=== PATIENT | female | born 1970 | race African-American/Black ===

== ENCOUNTER 2016-08-08 10:46 | Emergency (ER) | payer OTHER ==
--- NOTE | 2016-08-08 11:18 | ER Document Report ---
ED Medical Screen (RME) - General Chief Complaint: Back Pain Stated Complaint: BACK PAIN Mode of Arrival: Ambulatory Information source: Patient Notes: Patient presents to the emergency department for complaints of right hand pain and swelling. Patient reports history of chronic back pain felt sharp pain last night fell and landed on her hand. She is here for her hand pain. Good cap refill, +ttp dorsally, swelling TRAVEL OUTSIDE OF THE [place] IN LAST 30 DAYS: No - Related Data Allergies/Adverse Reactions: No Known Allergies Allergy (Unverified 08/08/16 11:15) Past Medical History Past Surgical History: Reports: Hx Gynecologic Surgery - D&C - Immunizations Hx Diphtheria, Pertussis, Tetanus Vaccination: Yes - 2009 Physical Exam - Vital signs Vitals: Temp Pulse Resp BP Pulse Ox 98.1 F 79 14 135/91 H 98 08/08/16 10:51 08/08/16 10:51 08/08/16 10:51 08/08/16 10:51 08/08/16 10:51 Course - Vital Signs Vital signs: Temp Pulse Resp BP Pulse Ox 98.1 F 79 14 135/91 H 98 08/08/16 10:51 08/08/16 10:51 08/08/16 10:51 08/08/16 10:51 08/08/16 10:51
--- NOTE | 2016-08-08 12:12 | ER Document Report ---
HPI - HPI Patient complains to provider of: hyperflexed right hand Onset: Yesterday - fall Onset/Duration: Sudden Quality of pain: Throbbing Pain Level: 4 Context: 45-year-old female stumbled and fell using her right outstretched hand was caused hyperflexion. There is swelling to the hyperthenar aspect with 2 superficial flaps and swelling and tenderness to the second proximal metacarpal. Associated Symptoms: None Exacerbated by: Movement Relieved by: Denies Similar symptoms previously: No Recently seen / treated by doctor: No - ROS ROS below otherwise negative: Yes Systems Reviewed and Negative: Yes All other systems reviewed and negative - DERM Skin Color: Normal Past Medical History - General Information source: Patient - Social History Smoking Status: Never Smoker Chew tobacco use (# tins/day): No Frequency of alcohol use: None Drug Abuse: None Family History: Reviewed & Not Pertinent Patient has suicidal ideation: No Patient has homicidal ideation: No - Medical History Medical History: Negative Renal/ Medical History: Denies: Hx Peritoneal Dialysis Past Surgical History: Reports: Hx Gynecologic Surgery - D&C, Hx Hysterectomy - Immunizations Hx Diphtheria, Pertussis, Tetanus Vaccination: Yes - 2009 Vertical Provider Document - CONSTITUTIONAL Agree With Documented VS: Yes Exam Limitations: No Limitations - INFECTION CONTROL TRAVEL OUTSIDE OF THE [place] IN LAST 30 DAYS: No - NECK Neck: Supple - RESPIRATORY O2 Sat by Pulse Oximetry: 98 - MUSCULOSKELETAL/EXTREMETIES Musculoskeletal/Extremeties: MAEW, Tender, Edema - Dorsal right hand over the second and third proximal metacarpal., Eccymosis Notes: Superficial flap cuts hyper thenar aspect of her right thumb no signs of infection - NEURO Level of Consciousness: Awake, Alert Motor/Sensory: No Motor Deficit, No Sensory Deficit Course - Re-evaluation Re-evalutation: 08/08/16 12:[address] Contreras to say that the x-ray was read as negative by Dr. maldonado she will let him know. The metacarpal fracture is seen on the lateral I suspected to be the second since that's where she is most swollen and tender. There are superficial abrasions I will treat with Keflex as a possible open fracture. 08/08/16 21:17 nurse did not notify me that the splint was ready to be checked after the applicaiton. - Vital Signs Vital signs: Temp Pulse Resp BP Pulse Ox 98.1 F 79 14 135/91 H 98 08/08/16 10:51 08/08/16 10:51 08/08/16 10:51 08/08/16 10:51 08/08/16 10:51 Discharge - Discharge Clinical Impression: Fracture of metacarpal base of right hand, open Condition: Good Disposition: HOME, SELF-CARE Instructions: Oral Narcotic Medication ([facility]), Fractured Metacarpal ([facility]), Cephalexin ([facility]), Temporary Splint ([facility]), Splint Precautions ([facility]), Temporary Sling ([facility]) Additional Instructions: Call for appointment with Dr. Mckeon the [facility] this week keep the splint on keflex to prevent skin infection to er any concerns Prescriptions: Hydrocodone Bit/Acetaminophen [Hydrocodon-Acetaminophen 5-325] 1 each PO Q4HP PRN #15 tablet PRN Reason: Cephalexin Monohydrate [Keflex 500 mg Capsule] 500 mg PO QID #20 capsule Referrals: CARLA MCKEON DO [ACTIVE STAFF] - Follow up tomorrow
[2016-08-08 12:34] VITALS: BP 129/90
== END 2016-08-08 12:35 | disposition home or self-care (01) ==
LOC: ER 10:46
DX: S62.310A Displaced fracture of base of second metacarpal bone, right hand, initial encounter for closed fracture (principal); W01.0XXA Fall on same level from slipping, tripping and stumbling without subsequent striking against object, initial encounter
CPT/HCPCS: 99283